=== PATIENT | male | born 1955 | race Two or more races ===

== ENCOUNTER → 2016-11-20 | Outpatient (CLI) | payer OTHER ==
--- NOTE | 2016-11-20 14:56 | RADRPT ---
PROCEDURE: Right knee x-ray CLINICAL INDICATION: Pain. TECHNIQUE: AP, lateral and oblique views of the right knee were obtained. COMPARISON: None FINDINGS: There are degenerative spurs off of the articular surface of the patella. There is joint space narr owing with spurring off of the right medial femoral and tibial condyles. No effusion or fracture is noted. IMPRESSION: 1. Osteoarthritis of the right knee with narrowing of the medial joint space compartment between the right medial femoral and tibial condyles. RPTAT:AAJJ Physician Silvia Date Time Electronically viewed and signed by Dhiraj rBand Physician on 11/20/2016 14:56 NILDA/
--- NOTE | 2016-11-20 19:54 | HKNOTE ---
DATE OF SERVICE: 11/20/2016 REFERRING PHYSICIAN: Kalpesh Mcintosh MD, [address], [address], [place], [place] [address] MAIN COMPLAINT: Pain in both knees. HISTORY OF MAIN COMPLAINT: The patient is a 61-year-old male who has had pain in both knees for abo ut 3 years. The right knee is slightly worse on the left knee. The patient states that "I can hard ly get around. My work is very strenuous. 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 PRESENT COMPLAINTS: He describes the pain as being severe and is aggravated by walking, weightbeari ng, and stair climbing. He does get rest pain and night pain. He states, "I've tried everything." Nothing has really helped. He has tried "many narcotics." He does not have any back problems. No numbness or tingling in her legs. On a flat and level surface, he can walk no more than about 50 feet at a time. He gets pain with ev maximino step that he takes. He can barely walk without his walker. He limps all the time. He does not have a shoe lift. He can clip his toenails and tie his shoelaces, but with great difficulty. SPORTING ACTIVITIES: None. PAST ORTHOPEDIC HISTORY: PREVIOUS ORTHOPEDIC OPERATIONS: None. PRIOR CORTISONE INTAKE: None. ALCOHOL INTAKE: None. OTHER JOINT PROBLEMS: None. PRIOR INJURIES TO HIPS OR KNEES: None. WORK STATUS: The patient works as a branch rental manager feeding horses. PAST MEDICAL HISTORY: Negative. PAST SURGICAL HISTORY: Negative. ALLERGIES: NONE. MEDICATIONS: 1. Koch-hed-rtgfjms arthritis pills. 2. Gabapentin 600 mg daily. PREVIOUS MAJOR INJURIES: Horse riding accident 3 years ago. FAMILY HISTORY: Noncontributory. SYSTEMS REVIEW: Gait disturbance, muscle jerking, both ankles swell, otherwise negative. HABITS: The patient smokes (? amount). He does not drink alcoholic beverages. PHYSICAL EXAMINATION: Extremely fragile looking, down set, 61-year-old male. He has a walking aid. He shuffles along to get onto the examination couch and he is barely able to do so. HIPS: Both hips have a full range of motion without pain. RIGHT KNEE: The right knee shows normal alignment. Active and passive extension lacks 5 degrees. Active and passive flexion is 100 degrees. Severe pain on attempting to exceed that range. The med ial and lateral collateral ligaments and cruciate ligaments are intact. Marcos test is negative. There is no effusion, tenderness, scarring, or cysts. 6+ crepitus in the knee, none in the patella. The patella tracks normally. There is no tenderness on the articular surface of the patella or in the patellar groove. The Q angle is normal. LEFT KNEE: The left knee shows normal alignment. Active and passive extension lacks 5 degrees. Ac tive and passive flexion is to 100 degrees (severe pain at limits). The medial and lateral collater al ligaments and cruciate ligaments are intact. Marcos test is negative. There is no effusion, te nderness, scarring, or cysts. 6+ crepitus in the knee, none in the patella. The patella tracks nor aubrey. There is no tenderness on the articular surface of the patella or in the patellar groove. T he Q angle is normal. IMAGING: Plain x-rays of his knees brought with him were reviewed (recent). These show exceedingly severe degenerative osteoarthritis of the medial compartment and patellofemoral joint of both knees . There is subchondral sclerosis, intraosseous cyst formation, and osteophyte formation throughout. DIAGNOSES: 1. Severe degenerative osteoarthritis of both knees (symptomatic and incapacitating). 2. The patient smokes cigarettes. MANAGEMENT: The patient was advised that there is no doubt that he is way overdue for knee replacem ent surgeries on both knees. He is so incapacitated ____. He has no real vocation other than the f arm work that he does doing heavy duty activities including lifting and climbing. The patient is af raid that may lose his job in the near future, since as each day goes by, he can barely perform his duties as a branch rental manager. The operation of total knee replacement was discussed with him in a fair amount of detail including some of the major possible complications. The patient was given my manual titled "Arthritis of the Knee Joint" which contains information concerning the various alternatives of treatment. It include s various forms of conservative treatment, including the use of nonsteroidal anti-inflammatory medic ations and their dangers. Various surgical alternatives are discussed. The technique of total knee replacement is discussed in detail, including possible complications. Included also is a section o n the possible complications of blood transfusion, a section on postoperative precautions, and an ex ercise program to follow at home after total knee replacement. The long-term care of a total knee r eplacement implant is also covered in detail. The patient was instructed to read this manual in its entirety since it is, in and of itself, a form of informed consent. After reading this manual, the patient will make a list of further questions that may not have been covered adequately. The twilae nt was further advised that this manual, although exhaustive in nature, is only intended to suppleme nt and complement a one-on-one discussion with me. FINAL DIAGNOSES: 1. Severe degenerative osteoarthritis of both knees (symptomatic and incapacitating). 2. The patient smokes cigarettes. The patient does not have any pain medications at the present time. He is given a prescription for [place] 10/325. He will call when he is ready to schedule his surgery. Dictated By: KENDRA ZHU/HEDY Conf#: [id number] DID#: [id number]
== END | disposition home or self-care (01) ==
LOC: HKI 15:28
DX: M17.0 Bilateral primary osteoarthritis of knee (principal); F17.210 Nicotine dependence, cigarettes, uncomplicated
CPT/HCPCS: 73562; Z7500; G0463

== ENCOUNTER → 2016-12-19 | Outpatient (CLI) | payer OTHER ==
--- NOTE | 2016-12-20 14:11 | HKNOTE ---
DATE OF SERVICE: 12/20/2016 The patient comes here for preoperative evaluation. He is scheduled to have a right total knee repl acement on 12/19/2016. He has been cleared for surgery by his fur scraper, Dr. Charleen Escoto. He boykin s not given any blood for autotransfusion. He understands the risks associated with using hospital blood. He is agreeable to using hospital blood if needed. All of his questions were asked and answ ered. Dictated By: KENDRA ZHU/HEDY Conf#: [id number] DID#: [id number]
== END | disposition home or self-care (01) ==
LOC: HKI 13:14
DX: Z01.818 Encounter for other preprocedural examination (principal)
CPT/HCPCS: G0463

== ENCOUNTER 2016-12-20 05:35 | Inpatient (IN) | payer OTHER ==
[2016-12-20] VITALS (20 sets, daily range): BP systolic 89–145; BP diastolic 50–85; PULSE 67–100; RESP 12–67; Ht 167.6 cm; Wt 75.0 kg
[~2016-12-20] VITALS: Ht 167.6 cm; Wt 75.0 kg
[2016-12-20] MEDS ORDERED: LACTATED RINGER'S 1,000 ML IV* SCH (06:00)
[2016-12-20] MEDS ORDERED: ACETAMINOPHEN 1000MG/100ML IV 100 ML IVPB ONE (06:00)
[2016-12-20] MEDS ORDERED: ONDANSETRON 4 MG INJ IV ONE (06:00)
[2016-12-20] MEDS ORDERED: SOD CHLORIDE 0.9% IVPB ONE (06:00)
[2016-12-20] MEDS ORDERED: DEXAMETHASONE 4 MG/ML 1 ML INJ IV ONE (06:00)
[2016-12-20] MEDS ORDERED: CELECOXIB 200 MG CAP PO ONE (06:00)
[2016-12-20] MEDS ORDERED: TRANEXAMIC ACID IVPB ONE (06:00)
[2016-12-20] MEDS ORDERED: VANCOMYCIN 1 GM (PMX) 250 ML IVPB ONE (06:00)
[2016-12-20] MEDS ORDERED: LANSOPRAZOLE 30 MG CAP PO ONE (06:00)
[2016-12-20] MEDS ORDERED: oxyCODONE (CR) 10 MG TAB [oxyCONTIN] PO ONE (06:00)
[2016-12-20] MEDS ORDERED: NEOSTIGMINE 3 MG/3 ML SYRINGE ONE (06:28)
[2016-12-20] MEDS ORDERED: LIDOCAINE 2% (SDV) 5 ML INJ ONE (06:28)
[2016-12-20] MEDS ORDERED: PROPOFOL 20 ML ONE (06:28)
[2016-12-20] MEDS ORDERED: FENTAnyl 50 MCG/ML VIAL ONE (06:28)
[2016-12-20] MEDS ORDERED: ROCURONIUM 50 MG INJ ONE (06:28)
[2016-12-20] MEDS ORDERED: GLYCOPYRROLATE 0.4 MG INJ ONE (06:28)
[2016-12-20] MEDS ORDERED: MIDAZOLAM 1 MG/ML 2 ML INJ ONE (06:28)
[2016-12-20] MEDS ORDERED: ONDANSETRON 4 MG INJ ONE (06:29)
[2016-12-20] MEDS ORDERED: LIDOCAINE 2%/EPI 30 ML INJ ONE (06:29)
[2016-12-20] MEDS ORDERED: DEXAMETHASONE 4 MG/ML 1 ML INJ ONE (06:29)
[2016-12-20] MEDS ORDERED: DIPHENHYDRAMINE 50 MG INJ IV PRN (06:30)
[2016-12-20] MEDS ORDERED: MIDAZOLAM 1 MG/ML 2 ML INJ IV PRN (06:30)
[2016-12-20] MEDS ORDERED: ATROPINE 1 MG/10 ML SYRINGE IV PRN (06:30)
[2016-12-20] MEDS ORDERED: HYDROmorphONE (0.2 MG/ML) 10ML SYG IV PRN ×3 (06:30)
[2016-12-20] MEDS ORDERED: FENTAnyl 50 MCG/ML VIAL IV PRN ×2 (06:30)
[2016-12-20] MEDS ORDERED: hydrALAzine 20 MG INJ IV PRN (06:30)
[2016-12-20] MEDS ORDERED: OXYCODONE/ACETAMINOPHEN (5/325) TAB PO PRN ×2 (06:30)
[2016-12-20] MEDS ORDERED: MEPERIDINE 25 MG INJ IV PRN (06:30)
[2016-12-20] MEDS ORDERED: morphine (1 MG/ML) 10ML SYRINGE IV PRN ×3 (06:30)
[2016-12-20] MEDS ORDERED: LABETALOL HCL 20MG INJ IV PRN (06:30)
[2016-12-20] MEDS ORDERED: EPHEDrine SULFATE 50 MG/5 ML SYG IV PRN (06:30)
[2016-12-20] MEDS ORDERED: ONDANSETRON 4 MG INJ IV PRN (06:30)
--- NOTE | 2016-12-20 06:47 | HPN ---
Date/Time of Note Date/Time of Note DATE: 12/20/16 TIME: 06:47 Interval H&P Admission Note Pt. seen H&P reviewed: No system changes MELL CASON PA-C December 20, 2016 06:47
[2016-12-20] MEDS ORDERED: SUCCINYLCHOLINE CHLORIDE 100 MG/5 ML SYG IV ONE (07:00)
[2016-12-20] MEDS: KNEE PAIN COCKTAIL VANCO INJ SCH ×12 (07:00→08:29)
[2016-12-20] MEDS ORDERED: ROPIVACAINE 0.2% 200 ML ONE (07:01)
[2016-12-20] MEDS ORDERED: BUPIVACAINE 0.25%/EPI (SDV) 30 ML INJ ONE (07:01)
[2016-12-20] MEDS ORDERED: METHYLENE BLUE 1% 10 ML INJ ONE (07:01)
[2016-12-20] MEDS ORDERED: TOBRAMYCIN 1.2 GM POWDER ONE (07:01)
[2016-12-20] MEDS ORDERED: VANCOMYCIN 1 GM INJ ONE (07:01)
[2016-12-20] MEDS ORDERED: POLYMYXIN B 500000 UNIT INJ ONE (07:01)
[2016-12-20] MEDS ORDERED: TRIAMCINOLONE ACET 40 MG/ML INJ ONE ×2 (07:26→11:07)
[2016-12-20] MEDS ORDERED: SOD CHLORIDE 0.9% IRR SCH ×2 (07:30)
[2016-12-20] MEDS ORDERED: TRANEXAMIC ACID IRR SCH ×2 (07:30)
[2016-12-20] MEDS ORDERED: BACITRACIN 50000 UNITS INJ IRR ONE (08:27)
[2016-12-20] MEDS ORDERED: ROPIVACAINE 0.2% 100ML BAG INJ ONE (08:29)
[2016-12-20] MEDS ORDERED: LIDOCAINE 2% (MDV) 20 ML INJ ONE (11:06)
[2016-12-20] MEDS ORDERED: NALOXONE (0.4 MG/ML) INJ IV PRN (11:30)
[2016-12-20] MEDS ORDERED: DOCUSATE SODIUM 100 MG CAP PO ONE (11:30)
[2016-12-20] MEDS ORDERED: MAGNESIUM HYDROXIDE 30ML CUP PO PRN (11:30)
[2016-12-20] MEDS ORDERED: COUMADIN NOTE XX SCH (11:30)
[2016-12-20] MEDS: ONDANSETRON 4 MG INJ IV SCH ×3 (11:30→23:30)
[2016-12-20] MEDS ORDERED: oxyCODONE 5 MG TAB PO PRN (11:30)
[2016-12-20] MEDS ORDERED: BISACODYL 10 MG SUPP PR PRN (11:30)
[2016-12-20] MEDS ORDERED: ASPIRIN (EC) 325 MG TAB PO ONE (11:30)
[2016-12-20] MEDS ORDERED: DIPHENHYDRAMINE 50 MG INJ IM PRN (11:30)
[2016-12-20] MEDS ORDERED: SENNA/DOCUSATE NA (8.6MG/50MG) TAB PO PRN (11:30)
[2016-12-20] MEDS ORDERED: HYDROmorphONE 0.2 MG/ML PCA IV PRN (11:30)
[2016-12-20] MEDS ORDERED: NA PHOSPHATE/BIPHOS 133 ML ENEMA PR PRN (11:30)
[2016-12-20] MEDS ORDERED: MEPERIDINE 10 MG/ML 30 ML PCA IV PRN (11:30)
[2016-12-20] MEDS ORDERED: BETHANECHOL 25 MG TAB PO PRN (11:30)
[2016-12-20] MEDS: CEFAZOLIN 1 GM/50 ML (PMX) 50 ML IVPB SCH ×2 (11:51→21:00)
[2016-12-20] MEDS: ACETAMINOPHEN 1000MG/100ML IV 100 ML IVPB SCH ×2 (11:51→20:40)
--- NOTE | 2016-12-20 12:22 | RADRPT ---
PROCEDURE: CR Right Knee CLINICAL INDICATION: Postop TECHNIQUE: An AP and lateral view were submitted. COMPARISON: 11/20/2016 FINDINGS: Osseous Structures: Since the previous study, the patient has undergone a total right knee replaceme nt and the components appear well seated. The osseous elements otherwise appear intact. Join Spaces: The joint spaces are well maintained. There is a small joint effusion and a small amou nt of postoperative intra-articular air. Soft Tissues: Drains have been placed and superficial elliott are now noted. IMPRESSION: 1. Interval total right knee replacement with the components well-seated. 2. Postop changes include intra-articular air fluid. 3. Drains and superficial elliott are now evident. Physician Lawrence Date Time Electronically viewed and signed by Physician Lawrence on 12/20/2016 12:21 RH/
--- NOTE | 2016-12-20 12:24 | RADRPT ---
PROCEDURE: CR Right Knee CLINICAL INDICATION: Right knee replacement TECHNIQUE: An AP and lateral view were obtained. COMPARISON: 11/20/2016 FINDINGS: Osseous Structures: The patella is absent and the femoral and tibial components of the total right k nee replacement and a been satisfactorily placed. The osseous elements are otherwise intact. Join Spaces: The joint spaces are well maintained. No joint effusion is identified. Soft Tissues: The soft tissues appear unremarkable. IMPRESSION: 1. Interval placement of the distal femoral and proximal tibial components of the total right knee replacement. 2. Absent patella. Physician Lawrence Date Time Electronically viewed and signed by Physician Lawrence on 12/20/2016 12:24 RH/
[2016-12-20] MEDS ORDERED: TRANEXAMIC ACID 750 MG in SOD CHLORIDE 0.9% 100 ML IVPB ONE ×2 (12:30→15:30)
--- NOTE | 2016-12-20 14:11 | HKNOTE ---
DATE OF SERVICE: 12/20/2016 The patient comes here for preoperative evaluation. He is scheduled to have a right total knee repl acement on 12/19/2016. He has been cleared for surgery by his teacher public health, Dr. Charleen Escoto. He boykin s not given any blood for autotransfusion. He understands the risks associated with using hospital blood. He is agreeable to using hospital blood if needed. All of his questions were asked and answ ered. Dictated By: KENDRA ZHU/HEDY Conf#: [id number] DID#: [id number]
[2016-12-20] MEDS: oxyCODONE 5 MG TAB PO PRN ×3 (15:30→20:35)
[2016-12-20] MEDS: DEXTROSE 5%-LR 1,000 ML IV SCH ×2 (17:17→23:51)
[2016-12-20] MEDS: ZOLPIDEM 5 MG TAB PO PRN (23:22)
[2016-12-21] MEDS: CEFAZOLIN 1 GM/50 ML (PMX) 50 ML IVPB SCH (04:17)
[2016-12-21] MEDS: ACETAMINOPHEN 1000MG/100ML IV 100 ML IVPB SCH ×4 (04:18→20:25)
[2016-12-21] MEDS: oxyCODONE 5 MG TAB PO PRN ×6 (04:24→20:33)
[2016-12-21 05:20] VITALS: BP 120/69; PULSE 63; RESP 18
[2016-12-21] MEDS: ONDANSETRON 4 MG INJ IV SCH (05:30)
[2016-12-21] MEDS ORDERED: BUPIVACAINE 0.25%/EPI (SDV) 30 ML INJ INJ PRN (06:00)
[2016-12-21] MEDS ORDERED: KETOROLAC 15 MG INJ INJ PRN (06:00)
[2016-12-21 06:03] LABS: ADD SCAN DIFF NO
[2016-12-21 06:12] LABS: BASOPHILS % 0.1 % (0.0-2.0); HEMATOCRIT 34.3 % (42.0-52.0); HEMOGLOBIN 11.1 g/dl (14.0-18.0); LYMPHOCYTES # 1.1 10^3/ul (0.8-2.9); LYMPHOCYTES % 8.4 % (15.0-51.0); MEAN CORPUSCULAR HEMOGLOBIN 29.7 pg (29.0-33.0); MEAN CORPUSCULAR HGB CONC 32.4 g/dl (32.0-37.0); MEAN CORPUSCULAR VOLUME 91.7 fl (82.0-101.0); MEAN PLATELET VOLUME 10.7 fl (7.4-10.4); MONOCYTE # 0.7 10^3/ul (0.3-0.9); MONOCYTES % 5.4 % (0.0-11.0); NEUTROPHIL # 11.6 10^3/ul (1.6-7.5); NEUTROPHILS % 85.7 % (39.0-77.0); PLATELET COUNT 323 10^3/UL (140-415); RED BLOOD COUNT 3.74 10^6/ul (4.70-6.10); RED CELL DISTRIBUTION WIDTH 12.7 % (11.5-14.5); WHITE BLOOD COUNT 13.5 10^3/ul (4.8-10.8)
--- NOTE | 2016-12-21 07:46 | PN ---
Date/Time of Note Date/Time of Note DATE: 12/21/16 TIME: 07:43 Assessment/Plan VTE Prophylaxis VTE Prophylaxis Intervention: ambulation, SCD's, other (Aspirin 325 mg twice daily.) Lines/Catheters IV Catheter Type (from Nrsg): Peripheral IV Gonzalez in Place (from Nrsg): No Assessment/Plan Assessment/Plan -Hemovac Removed Today. 200 cc output. -Pain Cocktail Given -Pain Meds as needed -Dress change performed today -OOB with PT -ASA/SCDs for DVT Prophylaxis -Continue monitoring with Internal Medicine -Patient Stable Subjective 24 Hr Interval Summary 61-year-old male postop day 1 status post right total knee replacement. Patient is having pain complaints which oxycodone is helping control. Patient was up and out of bed yesterday after surgery. Was able to apply weight, sit comfortably and walk a couple of steps using front wheeled walker. Denies any chest pain/tightness. Denies any calf pain or shortness of breath. Overall patient is doing well. Patient is very pleased status post surgery. Constitutional: ambulates Pain Control: moderate Exam/Review of Systems Vital Signs Vitals Vital Signs Date Time Temp Pulse Resp B/P Pulse Ox O2 Delivery O2 Flow Rate FiO2 12/21/16 05:20 98.2 63 18 120/69 95 12/20/16 16:00 Room Air 12/20/16 12:17 2.0 Intake and Output 12/20/16 12/20/16 12/21/16 15:00 23:00 07:00 Intake Total 1415.88 ml 850 ml 420 ml Output Total 50 ml 400 ml 820 ml Balance 1365.88 ml 450 ml -400 ml Exam Free Text/Dictation -Hemovac: Intact with 200 cc output. -Pain Cocktail Drains: Intact -Incision: Clean, Dry and Intact without any redness or drainage -5/5 Tibialis Anterior, EHL Gastrocnemius/Soleus and Peroneals -Able to flex the knee up to 60 today. About 5 lag from full extension. -Normal Sensation -Palpable DP/PT, Capillary Refill <2 secs -No Distal Edema -Negative Donnie Sign/No calf pain -Toes Freely Movable Constitutional: alert, oriented, well developed Results Result Diagram: 12/21/16 0413 MELL CASON PA-C December 21, 2016 07:46
--- NOTE | 2016-12-21 07:50 | PDOCDIS ---
Discharge Instructions DIAGNOSIS Discharge Diagnosis: Status post right total knee arthroplasty. CONDITION Patient Condition: Stable HOME CARE INSTRUCTIONS: Diet Instructions: Regular ACTIVITY: Activity Restrictions: Slowly Increase Activity Rest between Activity Avoid heavy lifting No Sexual Activity Do not Drive Do not operate Machinery Do not operate Power Tool Avoid Heavy Housework Keep Limb Elevated (With ice modalities encouraged.) Weight Bearing (As tolerated with front wheeled walker.) Bathing Restrictions: Shower (Using Tegaderm with pad. Apply prior to shower. After area is dry, remove Tegaderm. Repeat the steps each day until elliott are removed 10 days postoperatively.) FOLLOW UP/APPOINTMENTS Appointments 01/10/2017 at 2:45 PM. MELL CASON PA-C December 21, 2016 07:50
[2016-12-21 08:23] VITALS: BP 132/63; RESP 20
[2016-12-21] MEDS: DOCUSATE SODIUM 100 MG CAP PO SCH ×2 (08:37→20:30)
[2016-12-21] MEDS: FERROUS FUMARATE (SR) TAB PO SCH ×2 (08:37→20:30)
[2016-12-21] MEDS: CELECOXIB 200 MG CAP PO SCH ×2 (08:37→20:30)
[2016-12-21] MEDS: ASPIRIN (EC) 325 MG TAB PO SCH ×2 (08:38→20:30)
[2016-12-21] MEDS: DEXTROSE 5%-LR 1,000 ML IV SCH (12:21)
[2016-12-21] MEDS ORDERED: CEPASTAT LOZENGE MT PRN (16:30)
[2016-12-21 19:05] VITALS: BP 117/68; RESP 18
[2016-12-22] MEDS: oxyCODONE 5 MG TAB PO PRN ×8 (00:44→23:56)
[2016-12-22] MEDS: DEXTROSE 5%-LR 1,000 ML IV SCH ×2 (00:51→08:22)
[2016-12-22 05:09] LABS: ADD SCAN DIFF NO; BASOPHILS % 0.1 % (0.0-2.0); HEMATOCRIT 31.3 % (42.0-52.0); HEMOGLOBIN 10.4 g/dl (14.0-18.0); LYMPHOCYTES # 1.1 10^3/ul (0.8-2.9); LYMPHOCYTES % 7.5 % (15.0-51.0); MEAN CORPUSCULAR HEMOGLOBIN 30.3 pg (29.0-33.0); MEAN CORPUSCULAR HGB CONC 33.2 g/dl (32.0-37.0); MEAN CORPUSCULAR VOLUME 91.3 fl (82.0-101.0); MEAN PLATELET VOLUME 10.7 fl (7.4-10.4); MONOCYTE # 1.3 10^3/ul (0.3-0.9); MONOCYTES % 8.4 % (0.0-11.0); NEUTROPHIL # 12.4 10^3/ul (1.6-7.5); NEUTROPHILS % 83.5 % (39.0-77.0); PLATELET COUNT 300 10^3/UL (140-415); RED BLOOD COUNT 3.43 10^6/ul (4.70-6.10); WHITE BLOOD COUNT 14.9 10^3/ul (4.8-10.8)
[2016-12-22] MEDS: PANTOPRAZOLE (EC) 40 MG TAB PO SCH (06:06)
[2016-12-22] MEDS: DOCUSATE SODIUM 100 MG CAP PO SCH ×2 (08:20→21:15)
[2016-12-22] MEDS: CELECOXIB 200 MG CAP PO SCH ×2 (08:20→21:15)
[2016-12-22] MEDS: FERROUS FUMARATE (SR) TAB PO SCH ×2 (08:20→21:15)
[2016-12-22] MEDS: ASPIRIN (EC) 325 MG TAB PO SCH ×2 (08:20→21:15)
[2016-12-22 08:28] VITALS: BP 137/86; RESP 20
[2016-12-22] MEDS ORDERED: ALPRAZOLAM 0.5 MG TAB PO PRN (13:00)
--- NOTE | 2016-12-22 13:05 | PN ---
DATE: 12/22/2016 Postop day #2 right total knee replacement. SUBJECTIVE: The patient is having withdrawal from narcotics. He apparently has been taking large d oses of narcotics at home including OxyContin and Percocet. On further questioning, it turns out th at he has at least 2 doctors giving him medications and he also "borrows" medication from a friend o f his who has had surgery. He does not have very much pain in his right knee. The wound looks clean and healing well. Dressin gs were changed. VITAL SIGNS: Temperature 98.1. LABORATORY DATA: Hemoglobin 10.4, white cell count 14.9. MANAGEMENT: The patient's pain medications were changed around. He is being put on Xanax in additi on to his pain medications. Dictated By: KENDRA ZHU/HEDY Conf#: [id number] DID#: [id number]
[2016-12-22 19:00] VITALS: BP 157/82; RESP 18
[2016-12-23] MEDS: DEXTROSE 5%-LR 1,000 ML IV SCH ×2 (01:51→14:21)
[2016-12-23] MEDS: oxyCODONE 5 MG TAB PO PRN ×7 (02:33→22:53)
[2016-12-23 05:39] LABS: ADD SCAN DIFF NO
[2016-12-23 05:44] LABS: HEMATOCRIT 32.3 % (42.0-52.0); HEMOGLOBIN 10.3 g/dl (14.0-18.0); LYMPHOCYTES # 1.2 10^3/ul (0.8-2.9); LYMPHOCYTES % 11.9 % (15.0-51.0); MEAN CORPUSCULAR HEMOGLOBIN 29.3 pg (29.0-33.0); MEAN CORPUSCULAR HGB CONC 31.9 g/dl (32.0-37.0); MEAN PLATELET VOLUME 10.8 fl (7.4-10.4); MONOCYTE # 1.1 10^3/ul (0.3-0.9); MONOCYTES % 10.2 % (0.0-11.0); NEUTROPHIL # 8.1 10^3/ul (1.6-7.5); NEUTROPHILS % 77.3 % (39.0-77.0); PLATELET COUNT 293 10^3/UL (140-415); RED BLOOD COUNT 3.51 10^6/ul (4.70-6.10); RED CELL DISTRIBUTION WIDTH 13.1 % (11.5-14.5); WHITE BLOOD COUNT 10.4 10^3/ul (4.8-10.8)
[2016-12-23] MEDS: PANTOPRAZOLE (EC) 40 MG TAB PO SCH (06:14)
[2016-12-23 07:00] VITALS: BP 129/80; RESP 20
[2016-12-23] MEDS: ASPIRIN (EC) 325 MG TAB PO SCH ×2 (09:12→21:08)
[2016-12-23] MEDS: CELECOXIB 200 MG CAP PO SCH ×2 (09:12→21:07)
[2016-12-23] MEDS: FERROUS FUMARATE (SR) TAB PO SCH ×2 (09:12→21:07)
[2016-12-23] MEDS: DOCUSATE SODIUM 100 MG CAP PO SCH ×2 (09:12→21:07)
--- NOTE | 2016-12-23 17:54 | PN ---
DATE: 12/23/2016 The patient is making excellent progress. Dressing ____. His wound is clean and healing well. The patient's range of motion is 0 to 110 degrees active. He walks around without a walking aid. Temp erature 98.0. Hemoglobin 10.3. White cell count 10.4. The patient lives in a trailer, in which he says he has ever possible amenity that he could need for recovery. He has not received his [place] edications from the [facility] because "they won't be ready until Saturday". I called the [facility] and his friend will sisal picker the prescription from the pharmacy and take it to another pharma cy and he will be discharged today. Dictated By: KENDRA ZHU/HEDY Conf#: [id number] DID#: [id number]
[2016-12-23 20:00] VITALS: BP 121/76; PULSE 88; RESP 19
[2016-12-23] MEDS: ZOLPIDEM 5 MG TAB PO PRN (21:08)
[2016-12-24] MEDS: DEXTROSE 5%-LR 1,000 ML IV SCH (02:51)
[2016-12-24] MEDS: oxyCODONE 5 MG TAB PO PRN ×4 (02:58→12:27)
[2016-12-24 04:58] LABS: ADD SCAN DIFF NO
[2016-12-24 05:10] LABS: EOSINOPHILS % 0.2 % (0.0-7.0); HEMATOCRIT 36.3 % (42.0-52.0); HEMOGLOBIN 11.5 g/dl (14.0-18.0); LYMPHOCYTES # 1.4 10^3/ul (0.8-2.9); LYMPHOCYTES % 13.6 % (15.0-51.0); MEAN CORPUSCULAR HEMOGLOBIN 29.4 pg (29.0-33.0); MEAN CORPUSCULAR HGB CONC 31.7 g/dl (32.0-37.0); MEAN CORPUSCULAR VOLUME 92.8 fl (82.0-101.0); MEAN PLATELET VOLUME 10.4 fl (7.4-10.4); MONOCYTE # 1.3 10^3/ul (0.3-0.9); MONOCYTES % 12.5 % (0.0-11.0); NEUTROPHIL # 7.6 10^3/ul (1.6-7.5); NEUTROPHILS % 72.8 % (39.0-77.0); PLATELET COUNT 379 10^3/UL (140-415); RED BLOOD COUNT 3.91 10^6/ul (4.70-6.10); RED CELL DISTRIBUTION WIDTH 13.2 % (11.5-14.5); WHITE BLOOD COUNT 10.5 10^3/ul (4.8-10.8)
[2016-12-24] MEDS: PANTOPRAZOLE (EC) 40 MG TAB PO SCH (05:45)
[2016-12-24 07:31] VITALS: BP 132/77; RESP 19
--- NOTE | 2016-12-24 08:15 | PN ---
Date/Time of Note Date/Time of Note DATE: 12/24/16 TIME: 08:09 Assessment/Plan VTE Prophylaxis VTE Prophylaxis Intervention: ambulation, SCD's, other (Aspirin 325 mg.) Lines/Catheters IV Catheter Type (from Nrsg): Saline Lock Gonzalez in Place (from Nrsg): No Assessment/Plan Assessment/Plan -Pain Meds as needed -Dress change performed today -ASA for DVT Prophylaxis x 6 weeks outpatient discussed. -Continue monitoring as outpatient on discharge -Follow-up at scheduled postop outpatient appointment or sooner if there is any issue. -Tegaderm dressings given with specific instructions to use as outpatient to keep wound dry until elliott are moved around 10 days. -Patient Stable -Discharge to Home with home health Subjective 24 Hr Interval Summary 61-year-old male postop day 4 status post right total knee arthroplasty. Denies any pain complaints. Patient is up and out of bed walking with front wheeled walker. Patient states that his recovery is going very well as he has no complaints at this time. Denies any chest pain/tightness. No calf pain. Pain Control: well controlled Exam/Review of Systems Vital Signs Vitals Vital Signs Date Time Temp Pulse Resp B/P Pulse Ox O2 Delivery O2 Flow Rate FiO2 12/24/16 07:31 98.0 89 19 132/77 98 12/20/16 16:00 Room Air 12/20/16 12:17 2.0 Intake and Output 12/23/16 12/23/16 12/24/16 15:00 23:00 07:00 Intake Total 1340 ml 1400 ml Output Total 900 ml 1250 ml Balance 440 ml 150 ml Exam Free Text/Dictation -Hemovac: Intact/Removed -Pain Cocktail Drains: Removed -About 5 lag from full extension and patient is able to flex up to 90 today. -Incision: Clean, Dry and Intact without any redness or drainage -5/5 Tibialis Anterior, EHL Gastrocnemius/Soleus and Peroneals -Normal Sensation -Palpable DP/PT, Capillary Refill <2 secs -No Distal Edema -Negative Donnie Sign/No calf pain -Toes Freely Movable Constitutional: alert, oriented, well developed Results Result Diagram: 12/24/16 0442 MELL CASON PA-C December 24, 2016 08:15
--- NOTE | 2016-12-24 08:18 | DS ---
Date/Time of Note Date/Time of Note DATE: 12/24/16 TIME: 08:15 Discharge Summary Admission/Discharge Info Admit Date/Time December 20, 2016 at 05:35 Discharge Date/Time December 24, 2016 Final Diagnosis S/P Right Total Knee Arthroplasty Patient Condition: Stable Hospital Course On the day of admission, the patient underwent right total knee arthroplasty Intraoperative complications: None Postoperative complications: None The patient was given prophylactic antibiotics and anticoagulants. On the day of surgery and first postoperative day patient was started on gait training and was taught usual restrictions following knee replacement Suction drain removed on the first postoperative day and the dressings were changed. The wound was found to be clean and healing well. There was no sign of infection. Pain cocktail given. On the second postoperative day, patient continued with inpatient PT. Dressings were changed. Wound was found to be clean and healing well. No signs of infection. Pain cocktail given. On the day of discharge, the wound was clean and healing well; there was no sign of infection. The dressings were changed. Discharge Temperature: 98 Discharge White Blood Cell Count: 10.5 Discharge Hemoglobin: 11.5 The patient was discharged home with home health. Arrangements were made for visiting nurses and home health/physical therapy. Tegaderm with pad also provided for patient. Instructions given on how to use to keep wound dry while showering. Patient may discontinue use of Tegaderm with pad after elliott have been removed around 10 days postoperatively. The patient will be seen in office at scheduled postoperative evaluation date given on their preoperative exam. Should patient complain of any problems prior to scheduled postoperative evaluation date, they may call into outpatient clinic to determine if they need to be scheduled at sooner appointment to be seen immediately if needed. Discharge medications: As per medication reconciliation form Diet: Same as preadmission diet. This is Mell Rosenthal PA-C dictating discharge summary for Dr. Santo Vega. Follow-up Plan January 10, 2017 at 2:45 PM. Primary Care Provider Not On Staff Doctor Pending Labs Laboratory Tests Test 12/24/16 04:42 White Blood Count 10.510^3/ul (4.8-10.8) Red Blood Count 3.9110^6/ul (4.70-6.10) Hemoglobin 11.5g/dl (14.0-18.0) Hematocrit 36.3% (42.0-52.0) Mean Corpuscular Volume 92.8fl (82.0-101.0) Mean Corpuscular Hemoglobin 29.4pg (29.0-33.0) Mean Corpuscular Hemoglobin Concent 31.7g/dl (32.0-37.0) Red Cell Distribution Width 13.2% (11.5-14.5) Platelet Count 64169^3/UL (140-415) Mean Platelet Volume 10.4fl (7.4-10.4) Neutrophils % 72.8% (39.0-77.0) Lymphocytes % 13.6% (15.0-51.0) Monocytes % 12.5% (0.0-11.0) Eosinophils % 0.2% (0.0-7.0) Basophils % 0.0% (0.0-2.0) Nucleated Red Blood Cells % 0.0/100WBC (0.0-0.0) Neutrophils # 7.610^3/ul (1.6-7.5) Lymphocytes # 1.410^3/ul (0.8-2.9) Monocytes # 1.310^3/ul (0.3-0.9) Eosinophils # 0.010^3/ul (0.0-0.5) Basophils # 0.010^3/ul (0.0-0.1) Nucleated Red Blood Cells # 0.010^3/ul (0.0-0.0) MELL CASON PA-C December 24, 2016 08:18
[2016-12-24] MEDS: ASPIRIN (EC) 325 MG TAB PO SCH (08:55)
[2016-12-24] MEDS: CELECOXIB 200 MG CAP PO SCH (08:55)
[2016-12-24] MEDS: FERROUS FUMARATE (SR) TAB PO SCH (08:55)
[2016-12-24] MEDS: DOCUSATE SODIUM 100 MG CAP PO SCH (08:56)
== END 2016-12-24 13:15 | disposition home health service (06) | DRG 470 ==
LOC: REC 05:35 → EDSTATUS 07:30 → MS1 12:54
PROC: 0SRC0J9 Replacement of Right Knee Joint with Synthetic Substitute, Cemented, Open Approach (ICD-10-PCS; principal; 2016-12-20 07:30)
DX: M17.11 Unilateral primary osteoarthritis, right knee (principal); F11.23 Opioid dependence with withdrawal
CPT/HCPCS: 73560; 85025; 88304; 88311; 97110; 97116; 97163; 97166; C1776; J0131; J0690; J0735; J1100; J1200; J1885; J2175; J2250; J2274; J2405; J2710; J2795; J3010; J3370; J7120; J7121; J7999

== ENCOUNTER → 2017-01-10 | Outpatient (CLI) | payer OTHER ==
--- NOTE | 2017-01-10 15:14 | PN ---
Date/Time of Note Date/Time of Note DATE: 01/10/17 TIME: 15:09 Outpatient Progress Note Chief Complaint 3 week postop appointment HPI 61-year-old male presents today for three-week postoperative appointment status post right total knee replacement performed on 12/20/2016. Patient is very grateful and happy at today's visit. He states that he continues to improve in regards to functionality of the right knee. On average, during the day he experiences 3/10 pain to the right knee. While at rest he can experience 6/10 pain, typically on days when he has physical therapy or is been performing increased physical activity per patient account. Denies any calf pain. Denies any chest pain/tightness. Denies any difficulty breathing. Patient continues with at home physical therapy. Denies any falls. Patient would like refill of pain medication as he is down to 1 more day. Review of Systems Const: No Fever, no chills, no Fatigue, normal appetite, no diaphoresis. Resp: No SOB, no wheezing, no chest pain. CV: No chest pain, no palpitaions, no BRANDT. Physical Exam Blood pressure is 169/74, temperature is 98.3, pulse is 89, respiratory rate is 12, height is 5 foot 5 inches, weight is 175 pounds General Appearance: well-developed, well-nourished, in no acute distress. Right knee: Mild erythema seen over the surgical wound and more of a rectangular shape. Erythema seen is the similar outline to Tegaderm with pad dressing. Patient states that he is now no longer using Tegaderm and the redness has been improving. Denies any pruritic complaints or dermatitis complaints after stopping Tegaderm with pad. No tenderness to palpation on exam today. Patient is able to fully extend the right knee actively. Active flexion is up to 90. 5/5 strength on resistance with flexion and extension. Slight limp with gait. Patient attributes limp to ongoing left knee pain. Allergies Coded Allergies: No Known Allergy (Unverified , 12/20/16) Assessment/Plan -Wound healing well after staple removal. No signs of infection. Redness is improving, per patient account after stopping Tegaderm with pad. -Continue ASA 325 mg twice daily for DVT prophylaxis until 6 weeks status post surgery. -No signs of DVT. -Patient progressing well. -Prescription for [place] 10/325 mg 1 tab p.o. every 8 hours as needed severe pain. #45 tablets provided for patient today. Advised to use as needed for pain complaints. -Follow-up at 6 week postop appointment. X-rays will be performed at 6 weeks postoperative appointment. -Patient made aware that they may follow-up sooner, should they experience any issues or complications as we will be glad to see them. -Order for outpatient physical therapy given today with focus on improved range of motion. Dr. Vega was present for examination and agrees with plan. Medications Home Meds No Active Prescriptions or Reported Meds MELL CASON PA-C Jan 10, 2017 15:13
== END | disposition home or self-care (01) ==
LOC: HKI 14:30
DX: Z47.1 Aftercare following joint replacement surgery (principal); Z96.651 Presence of right artificial knee joint

== ENCOUNTER → 2017-01-31 | Outpatient (CLI) | payer OTHER ==
--- NOTE | 2017-01-31 15:09 | RADRPT ---
PROCEDURE: Right knee radiographs. CLINICAL INDICATION: Right knee pain. Postop. TECHNIQUE: Three views. Weight bearing. Frontal, lateral, and patellar view. COMPARISON: 11/20/2016. FINDINGS: There is no fracture or dislocation. The soft tissues are normal. There is a total right knee constrained arthroplasty which appears satisfactory. There is no lytic or blastic lesion. There is no joint effusion. IMPRESSION: 1. Satisfactory postoperative appearance of the right knee. RPTAT: QQ .Shyam Fernandez MD, Date Time Electronically viewed and signed by .Shyam Fernandez MD, on 01/31/2017 15:08 .R/
--- NOTE | 2017-01-31 15:28 | PN ---
Date/Time of Note Date/Time of Note DATE: 01/31/17 TIME: 15:23 Outpatient Progress Note Chief Complaint 6 weeks postop right total knee replacement HPI 61-year-old male presents today for 6 week postoperative appointment status post right total knee arthroplasty performed on 12/20/2016. Patient states that he is "very happy" status post right total knee replacement. Denies any pain to the right knee. After therapy he does report pain throughout the right knee traveling down to the foot. Pain is primarily posterior. Denies any specific calf pain, shortness of breath, chest pain/tightness. Patient states that he feels he is back to his normal function and is very grateful today on exam. Denies any injury. Patient states that after having the right knee done, he is noticing more pain to his left knee. History is significant for osteoarthritic complaints to the bilateral knees and since the right knee has been doing so well he has been focusing more on his left knee pain. Denies any injury to the left knee. Review of Systems Const: No Fever, no chills, no Fatigue, normal appetite, no diaphoresis. Resp: No SOB, no wheezing, no chest pain. CV: No chest pain, no palpitaions, no BRANDT. Physical Exam Blood pressure is 134/82, temperature is 98.2, pulse is 92, respiratory rate is 12, height is 5 foot 5 inches, weight is 175 pounds General Appearance: well-developed, well-nourished, in no acute distress. Right knee: Well-healed surgical scar to the right knee. Patient is able to flex up to 115 and fully extend the right knee. Gait is normal and nonantalgic to the right knee. Negative Homans sign. No calf pain with deep palpation. Normal sensory examination to light touch. 5/5 strength on resistance with flexion and extension. Imaging X-ray of the right knee performed on 01/31/2017 showing all components appearing well aligned, attached and integrated to the bone. No signs of any lucency between metal and bone. Allergies Coded Allergies: No Known Allergy (Unverified , 12/20/16) Assessment/Plan * Physical therapy prescription given in the past. Patient is having trouble getting physical therapy approved given his insurance. Patient is currently working with primary care provider in regards to physical therapy authorization. * Follow-up in 4.5 months which will be 6 months status post surgery to the right knee. Patient was also advised to follow-up after 3 months status post right knee in regards to the left knee. He will need to be referred by primary care provider to get approval through insurance so that evaluation to the left knee can be had to start the process of possible left knee replacement. * May discontinue restrictions. Gradually return to normal activity as tolerated. * Antibiotic card given today. * Anti-inflammatories as needed Antibiotic card provided for patient. Patient made aware that dental prophylaxis will be necessary prior to any dental procedure for the remainder of their lifetime. Patient is aware that they must contact their dentist prior to any procedure to inform them of previous joint replacement with prosthesis implant so appropriate antibiotic may be prescribed to lower risk of joint infection status post surgery. Card will also serve as confirmation should patient be traveling and have to go through security such as at an airport. Patient seen with Dr. Vega today and he agrees with plan. Patient also has ongoing ankle injury and continues to look for ankle specialist as he has been told in the past that he needs ankle reconstructive surgery as well. Medications Home Meds No Active Prescriptions or Reported Meds MELL CASON PA-C Jan 31, 2017 15:28
== END | disposition home or self-care (01) ==
LOC: HKI 14:13
DX: Z47.1 Aftercare following joint replacement surgery (principal); Z96.651 Presence of right artificial knee joint; M25.562 Pain in left knee

== ENCOUNTER → 2017-02-20 | Outpatient (CLI) | END | disposition home or self-care (01) | DX: M25.562 Pain in left knee (principal); Z96.651 Presence of right artificial knee joint | CPT/HCPCS: 20610; 73562; Z7500; Z7610 ==

== ENCOUNTER → 2017-07-02 | Outpatient (CLI) | payer OTHER ==
--- NOTE | 2017-07-03 03:02 | HKNOTE ---
DATE OF SERVICE: 07/02/2017 Patient comes in complaining of pain in his left knee. He is extremely pleased with the result of h is right knee replacement surgery. He states, "Doc, you've changed my life." However, the left kne e continues to cause him a great deal of pain and that the knee is occasionally unstable. Patient is going to have surgery on his right ankle by Dr. Alva in the next few weeks. PHYSICAL EXAMINATION: The patient walks without a walking aid. LEFT KNEE: The left knee shows valgus alignment. Active and passive extension is 0 degrees. Active and passive flexion is 135 degrees. The medial and lateral collateral ligaments and cruciate ligamen ts are intact. Marcos test is negative. There is 2+ effusion and 4+ crepitus in the knee, none in t he patella. There is no tenderness, scarring, crepitus, or cysts. The patella tracks normally. There is no tenderness on the articular surface of the patella or in the patellar groove. The Q angle is normal. IMAGING: Plain x-rays of the left knee obtained today were reviewed. These show severe bone-on-bon e degenerative changes in the lateral compartment of the patellofemoral joint, intraosseous cyst for mation. The medial compartment of the knee is markedly less affected by arthritis in the ____ later al compartment. MANAGEMENT: Patient is advised that he will definitely need to have a left knee replacement in the near future. If it was not that he has been scheduled for a right ankle surgery in the next couple of weeks, I would recommend that he proceed with his left knee replacement. However, he is going to have surgery on the right ankle in the next few weeks. He requests "for some relief of my left ank le." He will see me again after he has had his right ankle surgery. I have recommended that he not wait longer than perhaps a year from now to have surgery on his left knee. MANAGEMENT: Under sterile conditions, the patient was given injection of 2 mL of Kenalog and 6 mL o f 2% lidocaine into the left knee. I am also ordering a valgus support brace for his knee. He will be seen again as necessary. Dictated By: KENDRA ZHU/HEDY Conf#: [id number] DID#: [id number]
== END | disposition home or self-care (01) ==
LOC: HKI 09:20
DX: M25.562 Pain in left knee (principal); Z96.651 Presence of right artificial knee joint
CPT/HCPCS: 20610; Z7500; Z7610; G0463

== ENCOUNTER 2017-08-28 06:02 | Inpatient (IN) | END 2017-09-03 22:20 | DRG 469 ==

== ENCOUNTER 2017-09-03 22:29 | Inpatient (IN) | END 2017-09-12 11:45 | disposition home health service (06) | DRG 561 ==

== ENCOUNTER → 2017-10-21 | Outpatient (CLI) | END | disposition home or self-care (01) ==

== ENCOUNTER → 2018-02-11 | Outpatient (CLI) | END | disposition home or self-care (01) ==

== ENCOUNTER → 2018-05-26 | Outpatient (CLI) | END | disposition home or self-care (01) ==

== ENCOUNTER → 2018-06-05 | Outpatient (CLI) | END | disposition home or self-care (01) ==